=== PATIENT | male | born 1950 | race Two or more races ===

== ENCOUNTER → 2017-04-21 | Outpatient (CLI) | payer MEDICARE, OTHER | END | disposition home or self-care (01) | LOC: RADPV 10:25 | PROVIDERS: ATTEND Internal Medicine Nephrology | DX: N40.0 Benign prostatic hyperplasia without lower urinary tract symptoms (principal) | CPT/HCPCS: 76770 ==

== ENCOUNTER 2022-11-23 05:21 | Inpatient (IN) | payer MEDICARE, OTHER ==
[2022-11-23] VITALS (11 sets, daily range): BP systolic 129–142; BP diastolic 53–75; PULSE 64–88; RESP 18–32; TEMP 98.4–98.7; O2SAT 95–98
[~2022-11-23] VITALS: Ht 172.7 cm; Wt 103.8 kg
[2022-11-23 05:37] LABS: BASOPHILS % (AUTO) 0.7 % (0.0-2.0); EOSINOPHILS % (AUTO) 1.7 % (1.0-6.0); HEMATOCRIT 35.2 % (41-53); HEMOGLOBIN 11.1 g/dL (13.5-17.5); LYMPHOCYTES # (AUTO) 1.5 K/uL (1.0-4.8); LYMPHOCYTES % (AUTO) 9.8 % (22.0-44.0); MEAN CORPUSCULAR HEMOGLOBIN 26.1 pg (26.0-34.0); MEAN CORPUSCULAR HGB CONC 31.7 G/dL (31.0-37.0); MEAN CORPUSCULAR VOLUME 82 fL (80-100); MONOCYTES % (AUTO) 6.3 % (2.0-9.0); NEUTROPHILS # (AUTO) 12.6 K/uL (1.8-7.7); NEUTROPHILS % (AUTO) 81.5 % (40.0-70.0); PLATELET COUNT (AUTO) 351 K/uL (150-450); RED BLOOD CELL COUNT(AUTO) 4.27 MIL/uL (4.50-5.90); RED CELL DISTRIBUTION WIDTH 20.5 % (11.5-14.5)
[2022-11-23] MEDS ORDERED: IPRATROPIUM BROMIDE 0.5 MG/2.5 ML NEB SOLUTION NEB ONE (05:45)
[2022-11-23] MEDS ORDERED: DEXAMETHASONE SOD PHOS 4 MG/ML VIAL IVP ONE (05:45)
[2022-11-23] MEDS ORDERED: ALBUTEROL SULFATE 2.5 MG/0.5 ML NEB SOLUTION NEB ONE (05:45)
[2022-11-23 05:47] LABS: CALCIUM, TOTAL 8.4 mg/dL (8.8-10.5); CREATININE 1.33 mg/dL (0.60-1.30); POTASSIUM 4.6 mmol/L (3.5-5.1)
[2022-11-23 05:50] LABS: INR 1.1 (0.9-1.1); PROTHROMBIN TIME 11.2 SEC (9.4-11.6)
[2022-11-23 06:12] LABS: ALBUMIN 2.6 g/dL (3.4-5.0); BILIRUBIN,TOTAL 0.3 mg/dL (0.1-1.0); MAGNESIUM 2.2 mg/dL (1.80-2.40); PHOSPHORUS 4.5 mg/dL (2.5-4.9); TOTAL PROTEIN, SERUM 8.2 g/dL (6.4-8.2)
[2022-11-23 06:16] LABS: COVID AG,FIA SOURCE NASOPHARYNGEAL
[2022-11-23 06:30] LABS: APPEARANCE,URINE CLEAR (CLEAR); BILIRUBIN,URINE NEGATIVE (NEGATIVE); GLUCOSE, URINE (UA) >=1000 mg/dL (NEGATIVE); KETONES,URINE NEGATIVE (NEGATIVE); LEUKOCYTE ESTERASE ,URINE NEGATIVE (NEGATIVE); NITRATE,URINE NEGATIVE (NEGATIVE); OCCULT BLOOD,URINE NEGATIVE (NEGATIVE); PH,URINE 5.5 (5.0-8.0); PROTEIN,URINE 30-70 mg/dL (NEGATIVE); SPECIFIC GRAVITIY, URINE 1.019 (1.003-1.030); UROBILINOGEN,URINE <=1.0 mg/dL (<=1.0)
[2022-11-23 06:44] LABS: INFLUENZA TYPE A NEGATIVE FOR TYPE A (NEGATIVE); INFLUENZA TYPE B NEGATIVE FOR TYPE B (NEGATIVE)
[2022-11-23 07:01] LABS: BACTERIA,URINE None Seen /HPF (None Seen); RBC,URINE None Seen /HPF (0-2); SQUAMOUS EPITHELIAL CELL,UR Few /LPF (None Seen); WBC,URINE None Seen /HPF (0-5)
[2022-11-23 08:12] LABS: GLUCOMETER DEV NAME(LOC) ER.6
[2022-11-23] MEDS ORDERED: CefTRIAXone 1 GM/DEXTROSE 50 ML IV ONE (09:15)
[2022-11-23] MEDS ORDERED: AZITHROMYCIN 500 MG/NS 250 ML IV ONE (09:15)
[2022-11-23] MEDS ORDERED: IPRATROPIUM BROMIDE 0.5 MG/2.5 ML NEB SOLUTION NEB PRN (14:00)
[2022-11-23] MEDS ORDERED: HYDROCODONE/ACETAMINOPHEN 5-325 MG TABLET PO PRN (14:00)
[2022-11-23] MEDS ORDERED: ONDANSETRON HCL 4 MG/2 ML VIAL IVP PRN ×2 (14:00)
[2022-11-23] MEDS ORDERED: BISACODYL 10 MG RECTAL RECTAL SUPPOSITORY PR PRN ×2 (14:00)
[2022-11-23] MEDS ORDERED: ACETAMINOPHEN 325 MG TABLET PO PRN ×2 (14:00)
[2022-11-23] MEDS ORDERED: MAGNESIUM HYDROXIDE SUSPENSION 30 ML UDCUP PO PRN ×2 (14:00)
[2022-11-23] MEDS ORDERED: MORPHINE SULFATE 2 MG/ML SYRINGE IVP PRN ×2 (14:00)
[2022-11-23] MEDS ORDERED: ZOLPIDEM TARTRATE 5 MG TABLET PO PRN ×2 (14:00)
[2022-11-23] MEDS ORDERED: ALBUTEROL SULFATE 2.5 MG/0.5 ML NEB SOLUTION NEB PRN (14:00)
[2022-11-23] MEDS ORDERED: GuaiFENesin/D-METHORPHAN [SUGAR-FREE] 200-20MG/10 ML SYRUP UDCUP PO PRN (14:15)
[2022-11-23] MEDS: HYDROCODONE/ACETAMINOPHEN 5-325 MG TABLET PO PRN ×2 (14:36→21:46)
[2022-11-23] MEDS: FLUTICASONE/VILANTEROL 200-25 MCG/INH INHALER [14] IH SCH (15:00)
[2022-11-23] MEDS: ALBUTEROL SULFATE 2.5 MG/0.5 ML NEB SOLUTION NEB SCH ×2 (15:42→20:05)
[2022-11-23] MEDS: IPRATROPIUM BROMIDE 0.5 MG/2.5 ML NEB SOLUTION NEB SCH ×2 (15:42→20:05)
[2022-11-23] MEDS ORDERED: BENZONATATE 100 MG CAPSULE PO SCH ×2 (16:00)
[2022-11-23] MEDS ORDERED: HEPARIN SODIUM,PORCINE 5,000 UNITS/ML VIAL SQ SCH ×2 (16:00)
[2022-11-23] MEDS: MethylPREDNISolone SOD SUCC 125 MG/2 ML VIAL IVP SCH ×2 (17:40→23:55)
[2022-11-23] MEDS ORDERED: DEXTROSE 50%-WATER 25 GM/50 ML SYRINGE IVP PRN (19:00)
[2022-11-23] MEDS: DOCUSATE SODIUM 100 MG CAPSULE PO SCH (21:00)
[2022-11-23] MEDS ORDERED: DOCUSATE SODIUM 100 MG CAPSULE PO SCH (21:00)
[2022-11-23] MEDS ORDERED: CARVEDILOL 3.125 MG TABLET PO SCH (21:00)
[2022-11-23] MEDS ORDERED: FUROSEMIDE 20 MG/2 ML VIAL IVP SCH (21:00)
[2022-11-23] MEDS ORDERED: GuaiFENesin SR 600 MG ER TABLET PO SCH (21:00)
[2022-11-23] MEDS: INSULIN LISPRO 100 UNITS/ML SQ PRN (21:43)
[2022-11-23] MEDS: LOPERAMIDE HCL 2 MG CAPSULE PO PRN (21:52)
[2022-11-23 22:57] LABS: GLUCOMETER DEV NAME(LOC) 5S.2C
[2022-11-24] VITALS (11 sets, daily range): BP systolic 112–163; BP diastolic 34–86; PULSE 65–81; RESP 18–21; TEMP 98.3–98.7; O2SAT 90–98
[2022-11-24] MEDS: IPRATROPIUM BROMIDE 0.5 MG/2.5 ML NEB SOLUTION NEB SCH ×4 (02:00→19:40)
[2022-11-24] MEDS: ALBUTEROL SULFATE 2.5 MG/0.5 ML NEB SOLUTION NEB SCH ×4 (02:00→19:40)
[2022-11-24] MEDS ORDERED: CLOP75TA60 PO (03:28)
[2022-11-24] MEDS ORDERED: DULA4.5P PO (03:28)
[2022-11-24] MEDS ORDERED: FAMO20 PO (03:28)
[2022-11-24] MEDS ORDERED: ALBU18HF12 IH (03:28)
[2022-11-24] MEDS ORDERED: METO50 PO (03:34)
[2022-11-24] MEDS ORDERED: GABA-1181 PO (03:34)
[2022-11-24] MEDS ORDERED: TRAZ150T80 PO (03:34)
[2022-11-24] MEDS ORDERED: FURO40 PO (04:32)
[2022-11-24] MEDS ORDERED: NIFE-129 PO (04:32)
[2022-11-24] MEDS ORDERED: TAMS-13 PO (04:32)
[2022-11-24] MEDS ORDERED: DULO-113 PO (04:32)
[2022-11-24] MEDS ORDERED: FINE10TA PO (04:32)
[2022-11-24] MEDS ORDERED: ROSU20TA73 PO (04:32)
[2022-11-24] MEDS ORDERED: CHOL4POW3 PO (04:32)
[2022-11-24] MEDS ORDERED: DAPA10TA PO (04:32)
[2022-11-24] MEDS: INSULIN LISPRO 100 UNITS/ML SQ PRN ×4 (06:29→21:30)
[2022-11-24] MEDS: MethylPREDNISolone SOD SUCC 125 MG/2 ML VIAL IVP SCH ×4 (06:31→21:00)
[2022-11-24 07:09] LABS: BASOPHILS % (AUTO) 0.2 % (0.0-2.0); EOSINOPHILS % (AUTO) 0 % (1.0-6.0); HEMATOCRIT 36.2 % (41-53); HEMOGLOBIN 11.6 g/dL (13.5-17.5); LYMPHOCYTES % (AUTO) 10.6 % (22.0-44.0); MEAN CORPUSCULAR HEMOGLOBIN 25.8 pg (26.0-34.0); MEAN CORPUSCULAR VOLUME 81 fL (80-100); MONOCYTES # (AUTO) 0.3 K/uL (0.1-1.0); MONOCYTES % (AUTO) 3.4 % (2.0-9.0); NEUTROPHILS # (AUTO) 8.5 K/uL (1.8-7.7); PLATELET COUNT (AUTO) 377 K/uL (150-450); RED BLOOD CELL COUNT(AUTO) 4.49 MIL/uL (4.50-5.90); RED CELL DISTRIBUTION WIDTH 19.9 % (11.5-14.5)
[2022-11-24 07:17] LABS: ANION GAP 12 mmol/L (8-16); CALCIUM, TOTAL 8.9 mg/dL (8.8-10.5); CARBON DIOXIDE 24 mmol/L (22-29); CHLORIDE 97 mmol/L (98-107); CREATININE 1.16 mg/dL (0.60-1.30); GLOMERULAR FILTR. RATE CALC > 60 mL/min (>60); GLUCOSE,RANDOM 269 mg/dL (70-110); POTASSIUM 4.2 mmol/L (3.5-5.1); SODIUM SERUM 133 mmol/L (136-145)
[2022-11-24 07:21] LABS: NEUTROPHILS % (AUTO) 85.8 % (40.0-70.0)
[2022-11-24] MEDS: DOCUSATE SODIUM 100 MG CAPSULE PO SCH ×2 (08:35→20:26)
[2022-11-24] MEDS: CLOPIDOGREL BISULFATE 75 MG TABLET PO SCH (08:35)
[2022-11-24] MEDS: PANTOPRAZOLE SODIUM 40 MG DR TABLET PO SCH (08:36)
[2022-11-24] MEDS: HYDROCODONE/ACETAMINOPHEN 5-325 MG TABLET PO PRN ×2 (08:36→20:27)
[2022-11-24] MEDS: ATORVASTATIN CALCIUM 40 MG TABLET PO SCH (08:37)
[2022-11-24] MEDS ORDERED: PANTOPRAZOLE SODIUM 40 MG DR TABLET PO SCH (09:00)
[2022-11-24] MEDS ORDERED: CARVEDILOL 3.125 MG TABLET PO SCH (09:00)
[2022-11-24] MEDS ORDERED: FUROSEMIDE 40 MG/4 ML VIAL IVP SCH (09:00)
[2022-11-24] MEDS: FLUTICASONE/VILANTEROL 200-25 MCG/INH INHALER [14] IH SCH (09:00)
[2022-11-24] MEDS: AZITHROMYCIN 500 MG/NS 250 ML IV SCH (10:42)
[2022-11-24] MEDS: CefTRIAXone 1 GM/DEXTROSE 50 ML IV SCH (10:43)
[2022-11-24] MEDS ORDERED: INSU100I3 SQ (13:51)
[2022-11-24] MEDS ORDERED: SACU1TAB4 PO (13:51)
[2022-11-24] MEDS ORDERED: FLUT16H NASAL (13:51)
[2022-11-24] MEDS ORDERED: HYDR-4061 PO (13:51)
[2022-11-24] MEDS ORDERED: INSU100I26 SQ (13:51)
[2022-11-24 17:33] LABS: GLUCOMETER DEV NAME(LOC) 5N.1C
[2022-11-24 17:33] LABS: GLUCOMETER DEV NAME(LOC) 5N.1C
[2022-11-24] MEDS: TraZODone HCL 100 MG TABLET PO SCH (20:26)
[2022-11-24] MEDS: CARVEDILOL 6.25 MG TABLET PO SCH (20:28)
[2022-11-24] MEDS ORDERED: INSULIN GLARGINE,HUM.REC.ANLOG 100 UNITS/ML SQ SCH (21:00)
[2022-11-24] MEDS ORDERED: DEXTROSE 50%-WATER 25 GM/50 ML SYRINGE IVP PRN (21:00)
[2022-11-24 22:16] LABS: GLUCOMETER DEV NAME(LOC) 5S.2C
[2022-11-24 22:16] LABS: GLUCOMETER DEV NAME(LOC) 5S.2C
[2022-11-25] VITALS (13 sets, daily range): BP systolic 130–163; BP diastolic 50–71; PULSE 63–75; RESP 18–28; TEMP 97.6–98.1; O2SAT 93–100
[2022-11-25] MEDS: ALBUTEROL SULFATE 2.5 MG/0.5 ML NEB SOLUTION NEB SCH ×4 (02:00→20:06)
[2022-11-25] MEDS: IPRATROPIUM BROMIDE 0.5 MG/2.5 ML NEB SOLUTION NEB SCH ×4 (02:00→20:06)
[2022-11-25] MEDS: INSULIN LISPRO 100 UNITS/ML SQ PRN ×4 (06:25→21:03)
[2022-11-25] MEDS: CARVEDILOL 6.25 MG TABLET PO SCH ×2 (08:24→20:51)
[2022-11-25] MEDS: PANTOPRAZOLE SODIUM 40 MG DR TABLET PO SCH (08:24)
[2022-11-25] MEDS: CLOPIDOGREL BISULFATE 75 MG TABLET PO SCH (08:24)
[2022-11-25] MEDS: ATORVASTATIN CALCIUM 40 MG TABLET PO SCH (08:24)
[2022-11-25] MEDS: AZITHROMYCIN 500 MG/NS 250 ML IV SCH (08:25)
[2022-11-25] MEDS: MethylPREDNISolone SOD SUCC 125 MG/2 ML VIAL IVP SCH ×2 (08:25→20:51)
[2022-11-25] MEDS: FLUTICASONE/VILANTEROL 200-25 MCG/INH INHALER [14] IH SCH (08:26)
[2022-11-25] MEDS: DOCUSATE SODIUM 100 MG CAPSULE PO SCH ×2 (08:26→20:32)
[2022-11-25] MEDS: FUROSEMIDE 40 MG TABLET PO SCH (08:46)
[2022-11-25] MEDS: LOPERAMIDE HCL 2 MG CAPSULE PO PRN ×2 (09:36→15:59)
[2022-11-25] MEDS: CefTRIAXone 1 GM/DEXTROSE 50 ML IV SCH (12:24)
[2022-11-25] MEDS ORDERED: REMDESIVIR 200 MG in SODIUM CHLORIDE 0.9% 250 ML IV ONE (14:30)
[2022-11-25 16:13] LABS: GLUCOMETER DEV NAME(LOC) 5N.2C
[2022-11-25 16:13] LABS: GLUCOMETER DEV NAME(LOC) 5N.2C
[2022-11-25] MEDS: TraZODone HCL 100 MG TABLET PO SCH (20:51)
[2022-11-25] MEDS: INSULIN GLARGINE,HUM.REC.ANLOG 100 UNITS/ML SQ SCH (21:02)
[2022-11-26] VITALS (16 sets, daily range): BP systolic 125–153; BP diastolic 55–74; PULSE 60–81; RESP 13–23; TEMP 97.5–98.1; O2SAT 95–100
[2022-11-26] MEDS: ALBUTEROL SULFATE 2.5 MG/0.5 ML NEB SOLUTION NEB SCH ×4 (02:51→20:01)
[2022-11-26] MEDS: IPRATROPIUM BROMIDE 0.5 MG/2.5 ML NEB SOLUTION NEB SCH ×4 (02:51→20:01)
[2022-11-26] MEDS: INSULIN LISPRO 100 UNITS/ML SQ PRN ×4 (05:55→20:24)
[2022-11-26 06:09] LABS: GLUCOMETER DEV NAME(LOC) 5N.2C
[2022-11-26 06:09] LABS: GLUCOMETER DEV NAME(LOC) 5S.2C
[2022-11-26 07:49] LABS: GLUCOMETER DEV NAME(LOC) 5N.1C
[2022-11-26] MEDS: DOCUSATE SODIUM 100 MG CAPSULE PO SCH ×2 (09:00→21:00)
[2022-11-26] MEDS: FLUTICASONE/VILANTEROL 200-25 MCG/INH INHALER [14] IH SCH (09:25)
[2022-11-26] MEDS: AZITHROMYCIN 500 MG/NS 250 ML IV SCH (09:26)
[2022-11-26] MEDS: MethylPREDNISolone SOD SUCC 125 MG/2 ML VIAL IVP SCH ×2 (09:26→20:19)
[2022-11-26] MEDS: FUROSEMIDE 40 MG TABLET PO SCH (09:27)
[2022-11-26] MEDS: CLOPIDOGREL BISULFATE 75 MG TABLET PO SCH (09:27)
[2022-11-26] MEDS: CARVEDILOL 6.25 MG TABLET PO SCH ×2 (09:27→20:18)
[2022-11-26] MEDS: PANTOPRAZOLE SODIUM 40 MG DR TABLET PO SCH (09:27)
[2022-11-26] MEDS: HYDROCODONE/ACETAMINOPHEN 5-325 MG TABLET PO PRN (09:27)
[2022-11-26] MEDS: ATORVASTATIN CALCIUM 40 MG TABLET PO SCH (09:27)
[2022-11-26] MEDS: CefTRIAXone 1 GM/DEXTROSE 50 ML IV SCH (11:47)
[2022-11-26 12:12] LABS: GLUCOMETER DEV NAME(LOC) 5S.1B
[2022-11-26 15:04] LABS: CALCIUM, TOTAL 8.3 mg/dL (8.8-10.5); CREATININE 1.19 mg/dL (0.60-1.30)
[2022-11-26 15:09] LABS: ALBUMIN 2.4 g/dL (3.4-5.0); BILIRUBIN,TOTAL 0.4 mg/dL (0.1-1.0); POTASSIUM 3.7 mmol/L (3.5-5.1); TOTAL PROTEIN, SERUM 7.2 g/dL (6.4-8.2)
[2022-11-26] MEDS ORDERED: SODIUM CHLORIDE 0.9% 500 ML IV ONE (15:30)
[2022-11-26] MEDS: REMDESIVIR 100 MG in SODIUM CHLORIDE 0.9% 250 ML IV SCH (15:48)
[2022-11-26] MEDS: DAPTOMYCIN 500 MG in SODIUM CHLORIDE 0.9% 50 ML IV SCH (18:00)
[2022-11-26] MEDS: LOPERAMIDE HCL 2 MG CAPSULE PO PRN (18:00)
[2022-11-26] MEDS: TraZODone HCL 100 MG TABLET PO SCH (20:18)
[2022-11-26] MEDS: INSULIN GLARGINE,HUM.REC.ANLOG 100 UNITS/ML SQ SCH (20:23)
[2022-11-26 20:57] LABS: GLUCOMETER DEV NAME(LOC) 5S.1B
[2022-11-27] VITALS (15 sets, daily range): BP systolic 138–165; BP diastolic 55–94; PULSE 61–83; RESP 13–41; TEMP 91.8–98.9; O2SAT 93–100
[2022-11-27 01:28] LABS: GLUCOMETER DEV NAME(LOC) 5N.2C
[2022-11-27] MEDS: ALBUTEROL SULFATE 2.5 MG/0.5 ML NEB SOLUTION NEB SCH ×4 (02:04→19:16)
[2022-11-27] MEDS: IPRATROPIUM BROMIDE 0.5 MG/2.5 ML NEB SOLUTION NEB SCH ×4 (02:04→19:16)
[2022-11-27] MEDS: INSULIN LISPRO 100 UNITS/ML SQ PRN ×4 (06:12→20:07)
[2022-11-27 07:32] LABS: GLUCOMETER DEV NAME(LOC) 5N.2C
[2022-11-27 07:57] LABS: ALANINE AMINOTRANSFERASE 36 U/L (12-78); ALBUMIN 2.5 g/dL (3.4-5.0); ALKALINE PHOSPHATASE 85 U/L (46-116); ANION GAP 9 mmol/L (8-16); ASPARTATE AMINOTRANSFERASE 21 U/L (15-37); BILIRUBIN,TOTAL 0.5 mg/dL (0.1-1.0); CALCIUM, TOTAL 8.6 mg/dL (8.8-10.5); CARBON DIOXIDE 24 mmol/L (22-29); CHLORIDE 100 mmol/L (98-107); CREATINE KINASE, TOTAL ONLY 50 U/L (39-308); CREATININE 1.06 mg/dL (0.60-1.30); GLOMERULAR FILTR. RATE CALC > 60 mL/min (>60); GLUCOSE,RANDOM 244 mg/dL (70-110); POTASSIUM 3.8 mmol/L (3.5-5.1); SODIUM SERUM 133 mmol/L (136-145); TOTAL PROTEIN, SERUM 7.6 g/dL (6.4-8.2)
[2022-11-27] MEDS ORDERED: SODIUM CHLORIDE 0.9% 250 ML IV ONE (10:00)
[2022-11-27] MEDS: DOCUSATE SODIUM 100 MG CAPSULE PO SCH ×2 (10:04→20:00)
[2022-11-27] MEDS: CLOPIDOGREL BISULFATE 75 MG TABLET PO SCH (10:04)
[2022-11-27] MEDS: FUROSEMIDE 40 MG TABLET PO SCH (10:04)
[2022-11-27] MEDS: CARVEDILOL 6.25 MG TABLET PO SCH ×2 (10:04→20:00)
[2022-11-27] MEDS: MethylPREDNISolone SOD SUCC 125 MG/2 ML VIAL IVP SCH ×2 (10:04→20:00)
[2022-11-27] MEDS: ATORVASTATIN CALCIUM 40 MG TABLET PO SCH (10:04)
[2022-11-27] MEDS: PANTOPRAZOLE SODIUM 40 MG DR TABLET PO SCH (10:04)
[2022-11-27] MEDS: AZITHROMYCIN 500 MG/NS 250 ML IV SCH (10:05)
[2022-11-27] MEDS: FLUTICASONE/VILANTEROL 200-25 MCG/INH INHALER [14] IH SCH (10:05)
[2022-11-27] MEDS: CefTRIAXone 1 GM/DEXTROSE 50 ML IV SCH (11:45)
[2022-11-27 16:07] LABS: GLUCOMETER DEV NAME(LOC) 5N.2C
[2022-11-27] MEDS: REMDESIVIR 100 MG in SODIUM CHLORIDE 0.9% 250 ML IV SCH (16:46)
[2022-11-27] MEDS: LOPERAMIDE HCL 2 MG CAPSULE PO PRN (16:57)
[2022-11-27] MEDS: HYDROCODONE/ACETAMINOPHEN 5-325 MG TABLET PO PRN (16:58)
[2022-11-27] MEDS: DAPTOMYCIN 500 MG in SODIUM CHLORIDE 0.9% 50 ML IV SCH (19:13)
[2022-11-27] MEDS: TraZODone HCL 100 MG TABLET PO SCH (20:00)
[2022-11-27] MEDS: INSULIN GLARGINE,HUM.REC.ANLOG 100 UNITS/ML SQ SCH (20:06)
[2022-11-28] VITALS (13 sets, daily range): BP systolic 131–153; BP diastolic 65–101; PULSE 62–85; RESP 16–23; TEMP 97.8–98.4; O2SAT 8–100
[2022-11-28 00:22] LABS: GLUCOMETER DEV NAME(LOC) 5N.2C
[2022-11-28 00:22] LABS: GLUCOMETER DEV NAME(LOC) 5N.2C
[2022-11-28] MEDS: ALBUTEROL SULFATE 2.5 MG/0.5 ML NEB SOLUTION NEB SCH ×4 (02:00→20:16)
[2022-11-28] MEDS: IPRATROPIUM BROMIDE 0.5 MG/2.5 ML NEB SOLUTION NEB SCH ×4 (02:00→20:16)
[2022-11-28] MEDS: INSULIN LISPRO 100 UNITS/ML SQ PRN ×4 (05:47→21:59)
[2022-11-28 07:16] LABS: GLUCOMETER DEV NAME(LOC) 5S.2C
[2022-11-28] MEDS: CLOPIDOGREL BISULFATE 75 MG TABLET PO SCH (08:17)
[2022-11-28] MEDS: AZITHROMYCIN 500 MG/NS 250 ML IV SCH (08:17)
[2022-11-28] MEDS: MethylPREDNISolone SOD SUCC 125 MG/2 ML VIAL IVP SCH ×2 (08:17→21:56)
[2022-11-28] MEDS: ATORVASTATIN CALCIUM 40 MG TABLET PO SCH (08:17)
[2022-11-28] MEDS: FUROSEMIDE 40 MG TABLET PO SCH (08:17)
[2022-11-28] MEDS: PANTOPRAZOLE SODIUM 40 MG DR TABLET PO SCH (08:17)
[2022-11-28] MEDS: CARVEDILOL 6.25 MG TABLET PO SCH ×2 (08:17→22:00)
[2022-11-28] MEDS: DOCUSATE SODIUM 100 MG CAPSULE PO SCH ×2 (08:17→22:00)
[2022-11-28] MEDS: FLUTICASONE/VILANTEROL 200-25 MCG/INH INHALER [14] IH SCH (08:18)
[2022-11-28] MEDS: CefTRIAXone 1 GM/DEXTROSE 50 ML IV SCH (09:54)
[2022-11-28 15:51] LABS: ANION GAP 12 mmol/L (8-16); CARBON DIOXIDE 22 mmol/L (22-29); CHLORIDE 97 mmol/L (98-107); CREATININE 1.33 mg/dL (0.60-1.30); GLUCOSE,RANDOM 385 mg/dL (70-110); POTASSIUM 3.7 mmol/L (3.5-5.1); SODIUM SERUM 131 mmol/L (136-145)
[2022-11-28 15:52] LABS: ALANINE AMINOTRANSFERASE 38 U/L (12-78); ALBUMIN 2.6 g/dL (3.4-5.0); ALKALINE PHOSPHATASE 89 U/L (46-116); ASPARTATE AMINOTRANSFERASE 18 U/L (15-37); BILIRUBIN,TOTAL 0.5 mg/dL (0.1-1.0); CALCIUM, TOTAL 8.4 mg/dL (8.8-10.5); GLOMERULAR FILTR. RATE CALC 53 mL/min (>60); TOTAL PROTEIN, SERUM 7.4 g/dL (6.4-8.2)
[2022-11-28] MEDS: REMDESIVIR 100 MG in SODIUM CHLORIDE 0.9% 250 ML IV SCH (16:12)
[2022-11-28] MEDS: DAPTOMYCIN 500 MG in SODIUM CHLORIDE 0.9% 50 ML IV SCH (17:16)
[2022-11-28 17:36] LABS: GLUCOMETER DEV NAME(LOC) 5N.1C
[2022-11-28 20:36] LABS: GLUCOMETER DEV NAME(LOC) 5S.2C
[2022-11-28] MEDS: INSULIN GLARGINE,HUM.REC.ANLOG 100 UNITS/ML SQ SCH (21:00)
[2022-11-28] MEDS: HYDROCODONE/ACETAMINOPHEN 5-325 MG TABLET PO PRN (22:00)
[2022-11-28] MEDS: TraZODone HCL 100 MG TABLET PO SCH (22:00)
[2022-11-29] VITALS (7 sets, daily range): BP systolic 132–138; BP diastolic 72–80; PULSE 65–86; RESP 18–24; TEMP 98; O2SAT 95–98
[2022-11-29] MEDS: ALBUTEROL SULFATE 2.5 MG/0.5 ML NEB SOLUTION NEB SCH ×3 (02:00→14:34)
[2022-11-29] MEDS: IPRATROPIUM BROMIDE 0.5 MG/2.5 ML NEB SOLUTION NEB SCH ×3 (02:00→14:34)
[2022-11-29 06:36] LABS: GLUCOMETER DEV NAME(LOC) 5N.2C
[2022-11-29] MEDS: FLUTICASONE/VILANTEROL 200-25 MCG/INH INHALER [14] IH SCH (09:00)
[2022-11-29] MEDS: CefTRIAXone 1 GM/DEXTROSE 50 ML IV SCH (10:00)
[2022-11-29] MEDS: ATORVASTATIN CALCIUM 40 MG TABLET PO SCH (10:23)
[2022-11-29] MEDS: DOCUSATE SODIUM 100 MG CAPSULE PO SCH (10:23)
[2022-11-29] MEDS: MethylPREDNISolone SOD SUCC 125 MG/2 ML VIAL IVP SCH (10:23)
[2022-11-29] MEDS: FUROSEMIDE 40 MG TABLET PO SCH (10:23)
[2022-11-29] MEDS: CARVEDILOL 6.25 MG TABLET PO SCH (10:23)
[2022-11-29] MEDS: CLOPIDOGREL BISULFATE 75 MG TABLET PO SCH (10:23)
[2022-11-29] MEDS: AZITHROMYCIN 500 MG/NS 250 ML IV SCH (10:23)
[2022-11-29] MEDS: PANTOPRAZOLE SODIUM 40 MG DR TABLET PO SCH (10:24)
[2022-11-29] MEDS: INSULIN LISPRO 100 UNITS/ML SQ PRN (11:58)
[2022-11-29] MEDS: REMDESIVIR 100 MG in SODIUM CHLORIDE 0.9% 250 ML IV SCH (13:47)
[2022-11-30 06:01] LABS: GLUCOMETER DEV NAME(LOC) 5N.2C
[2022-11-30 08:01] LABS: GLUCOMETER DEV NAME(LOC) 5N.1C
== END 2022-11-29 16:25 | disposition home or self-care (01) | DRG 871 ==
LOC: EMS 05:23 → 5S 11:30
PROVIDERS: ADMIT Internal Medicine; ATTEND Internal Medicine
PROC: 5A09357 Assistance with Respiratory Ventilation, Less than 24 Consecutive Hours, Continuous Positive Airway Pressure (ICD-10-PCS; principal; 2022-11-23)
PROC: XW033E5 Introduction of Remdesivir Anti-infective into Peripheral Vein, Percutaneous Approach, New Technology Group 5 (ICD-10-PCS; 2022-11-25)
PROC: 5A09357 Assistance with Respiratory Ventilation, Less than 24 Consecutive Hours, Continuous Positive Airway Pressure (ICD-10-PCS; 2022-11-26)
PROC: 5A09357 Assistance with Respiratory Ventilation, Less than 24 Consecutive Hours, Continuous Positive Airway Pressure (ICD-10-PCS; 2022-11-27)
PROC: 0HBLXZZ Excision of Left Lower Leg Skin, External Approach (ICD-10-PCS; 2022-11-29)
DX: A41.9 Sepsis, unspecified organism (principal); I50.33 Acute on chronic diastolic (congestive) heart failure; J12.82 Pneumonia due to coronavirus disease 2019; U07.1 COVID-19; J96.01 Acute respiratory failure with hypoxia; E87.1 Hypo-osmolality and hyponatremia; I13.0 Hypertensive heart and chronic kidney disease with heart failure and stage 1 through stage 4 chronic kidney disease, or unspecified chronic kidney disease; J44.0 Chronic obstructive pulmonary disease with (acute) lower respiratory infection; T81.30XA Disruption of wound, unspecified, initial encounter; I25.10 Atherosclerotic heart disease of native coronary artery without angina pectoris; D64.9 Anemia, unspecified; N18.30 Chronic kidney disease, stage 3 unspecified; E11.40 Type 2 diabetes mellitus with diabetic neuropathy, unspecified; E66.01 Morbid (severe) obesity due to excess calories; Z68.34 Body mass index [BMI] 34.0-34.9, adult; E11.22 Type 2 diabetes mellitus with diabetic chronic kidney disease; E11.51 Type 2 diabetes mellitus with diabetic peripheral angiopathy without gangrene; K21.9 Gastro-esophageal reflux disease without esophagitis; E78.00 Pure hypercholesterolemia, unspecified; N40.0 Benign prostatic hyperplasia without lower urinary tract symptoms; Y83.8 Other surgical procedures as the cause of abnormal reaction of the patient, or of later complication, without mention of misadventure at the time of the procedure; Z91.041 Radiographic dye allergy status; Z89.512 Acquired absence of left leg below knee; Z87.891 Personal history of nicotine dependence; Z79.899 Other long term (current) drug therapy; Z79.02 Long term (current) use of antithrombotics/antiplatelets; Y92.89 Other specified places as the place of occurrence of the external cause
CPT/HCPCS: 71045; 80048; 80053; 81001; 82550; 82962; 83605; 83735; 83880; 84100; 84145; 84484; 85025; 85610; 85730; 87040; 87804; 93005; 94640; 94660; 97162; 97530; 99291; C8929; J0456; J0696; J0878; J1100; J1815; J1940; J2270; J2930; J7050; Q9967; 36415-L1; 36415-TC; C8928; J7613